=== PATIENT | female | born 1975 | race Caucasian/White ===

== ENCOUNTER 2020-06-28 21:56 | Inpatient (IN) | payer OTHER, SELFPAY ==
[2020-06-28 21:56] VITALS: BP 112/80; PULSE 89; RESP 18; TEMP 35.9; O2SAT 95; BMI 32.9
[2020-06-28 22:25] LABS: Bacteria 0 SEEN /hpf (None Seen); Mucous, Urine 0 SEEN /hpf (<or=2+); Red Blood Cells-Urine 0 SEEN /hpf (0-5); White Blood Cells 0 SEEN /hpf (0-5)
[2020-06-28 22:28] LABS: Color, Urine Straw (Yellow); Glucose, Dipstick Normal (Normal); Ketone-Dipstick Negative (Negative); Leukocyte Esterase-Dipstick Negative /ul (Negative); Nitrite-Dipstick Negative (Negative); Occult Blood-Urine Negative /ul (Negative); Protein-Dipstick Negative (Negative); Specific Gravity, Urine 1.005 (1.002-1.030); Urine Bilirubin Dipstick Negative (Negative); Urine Clarity Clear (Clear); Urine Urobilinogen Normal (Normal)
[2020-06-28 22:31] LABS: Absolute Lymphocyte Count 1.22 X10^3/uL (0.83-4.51); Absolute Neutrophil Count 13.2 X10^3/uL (2.0-7.7); Basophil# 0.03 X10^3/uL; Basophil% 0.2 % (0-1); Eosinophil# 0.02 X10^3/uL; Eosinophils% 0.1 % (0-5); Hematocrit 36.9 % (37-47); Hemoglobin 12.2 g/dL (12.0-15.0); Lymphocyte # 1.22 X10^3/ul (4.0); Mean Corp Hgb Conc 33.1 g/dL (32-36); Mean Corpuscular Volume 90.9 fL (81-99); Mean Platelet Vol. 9.3 fl (6.2-12.0); Monocyte# 0.78 X10^3/uL; Monocyte% 5.1 % (0-10); NRBC Flagged by Analyzer 0 % (0-5); Neutrophil % 86.3 % (47-70); Platelet Count 334 K/mm3 (150-450); RBC Distribution Width CV 13.6 % (11.6-14.6); RBC Distribution Width SD 45.7 fl (35.1-43.9); Red Blood Count 4.06 M/mm3 (4.2-5.4); White Blood Count 15.3 K/mm3 (4.4-11.0)
[2020-06-28 22:34] LABS: Squamous Epithelial Cells - UA 0-5 SEEN /hpf (5-10)
[2020-06-28 22:46] LABS: Anion Gap 4 (5-15); BUN 9 mg/dL (7-18); BUN/Creat Ratio 10.7 RATIO (10-20); Calcium,Total 9.3 mg/dL (8.5-10.1); Chloride 105 mmol/L (98-107); Creatinine, Serum 0.84 mg/dL (0.55-1.02); EST Glomerular Filtration Rate 77 mL/min (>60); Est Glom Filt Rate - Afr Amer 93 mL/min (>60); Estimated Creatinine Clearance 72.26 ml/min; Glucose 109 mg/dL (74-106); Potassium 3.7 mmol/L (3.5-5.1); Sodium Level 138 mmol/L (136-145)
[2020-06-28 22:47] LABS: Internal QC Validated? YES +Cl - CLEAR BKGD; Pregnancy, Serum, hCG Quali. NEGATIVE Negative
[2020-06-28 22:56] LABS: Lipase 132 U/L (73-393)
[2020-06-28 22:57] LABS: AST(SGOT) 16 U/L (15-37); Alanine Aminotransfer ALT/SGPT 31 U/L (13-56); Albumin, Serum 3.7 g/dL (3.2-5.0); Alkaline Phosphatase 74 U/L (45-117); Bilirubin, Direct 0.12 mg/dL (0.00-0.30); Globulin 3.9 g/dL (2.2-4.2); Protein, Total 7.6 g/dL (6.4-8.2)
--- NOTE | 2020-06-28 22:58 | CT_ITS ---
We are attempting to reach an attending provider to discuss findings. An addendum with communication details will be sent when the communication is complete. STUDY: CT ABDOMEN AND PELVIS WITH CONTRAST REASON FOR EXAM: Female, 44 years old. DIFFUSE ABDOMEN PAIN AND VOMITING SINCE 1 PM TODAY,ELEVATED WBC,PREG TEST WAS NEGATIVE RADIATION DOSAGE (If Supplied By Facility): CTDIvol = ( 16.57 ) mGy, DLP = ( 963.16 ) mGycm TECHNIQUE: Transaxial images were obtained from the dome of the diaphragm to the symphysis pubis without oral contrast. IV 100mL Isovue-300 was administered. Sagittal and coronal images were reconstructed. Individualized dose optimization techniques were used for this CT. COMPARISON: None. FINDINGS: The visualized lung bases are unremarkable. The visualized portions of the heart are within normal limits. Normal liver. Normal gallbladder and extrahepatic biliary system. Normal spleen. Normal pancreas. Normal bilateral adrenal glands. Normal right kidney. Normal left kidney. There are tiny subcentimeter bilateral renal cysts. Normal visualized stomach. Normal small intestine. Normal colon. There is a tubular, thick-walled appendix (>7mm), consistent with acute appendicitis. Appendix measures 1.4 cm across. There are several appendicoliths. There is mild periappendiceal fat stranding. Normal abdominal aorta. Normal inferior vena cava. Normal retroperitoneum. Normal urinary bladder. Normal visualized uterus. Normal abdominal wall. Normal osseous structures. CT/Abdomen/Pelvis W IV Cont ONLY IMPRESSION: Acute appendicitis without perforation or abscess. Electronically Signed: Diogenes Koch MD at 23:39 EST , Service support ,
--- NOTE | 2020-06-28 23:00 | ED.VIS.GEN ---
History of Present Illness Chief Complaint: Abd Pain Informant: Patient Narrative: Patient is a 44-year-old female with no known medical problems who presents to the emergency department for abdominal pain. This started around 1 AM today. She denies ever experiences before in the past. The majority the pain is in the lower quadrants bilaterally. She currently rates the pain as a 9 out of 10. She states she tried drinking charcoal water and zandra root but this did not help. She had one episode of vomiting. No change in bowel habits. She denies any urinary symptoms. No vaginal bleeding or discharge. No fevers or chills. She denies any chest pain or shortness of breath. The pain does not radiate to her back. No previous abdominal surgeries. Past Medical History - Allergies and Home Meds Allergies/Adverse Reactions: Allergies No Known Allergies Allergy (Verified 03/08/17 12:32) Primary Care Physician: Care Physician,No Primary [Primary Care Provider] - Prior records reviewed: Yes Past Medical History: None Surgical History: no surgical history Smoking Status: Never smoker Review of Systems All systems negative except as indicated General: Denies: Chills, Fever, Sweats Eyes: Denies: Visual changes - bilaterally, Diplopia ENT: Denies: Rhinorrhea, Sore throat Cardiovascular: Denies: Chest pain, Palpitations Respiratory: Denies: Dyspnea, Cough, Dyspnea on exertion Gastrointestinal: Reports: Abdominal pain, Nausea, Vomiting. Denies: Diarrhea, Melena, Hematochezia Genitourinary: Denies: Dysuria, Hematuria, Frequency Musculoskeletal: Denies: Back pain, Extremity Pain Skin: Denies: Rash, Wounds Neurological: Denies: Headache, Weakness, Numbness Physical Exam Vital Signs/Narrative: Vital Signs Temp Pulse Resp BP Pulse Ox 06/28/20 21:56 96.7 F L 89 18 112/80 95 Inital Vital Signs reviewed: Yes General: Well nourished, Well developed, No Acute Distress Head: Normocephalic, Atraumatic Eyes: Perrl, EOMI ENT: Moist mucous membranes, No rhinorrhea Neck: Supple, Nontender Cardiovascular: Regular rate, Regular rhythm, No murmurs Respiratory: No distress, CTA bilaterally, Chest nontender Abdomen: Soft, Nondistended, Normal bowel sounds, Tender - Diffuse but mostly in the right lower quadrant. No rebound or guarding.. Negative for: Psoas sign, Fitzpatrick's sign Back: Nontender, Normal Inspection Extremities: Nontender, No edema Skin: Normal color, No rash Neurological: Alert, Oriented x3, Cranial nerves II-XII grossly intact, Normal Strength, Normal Sensation Psychological: Normal affect, Normal Mood Diagnostic/Tx/Re-eval - Medical Decision Making Patient presents to the emergency department for abdominal pain and nausea/vomiting. Upon arrival to the emerge department vital signs within normal limits. She does not appear in acute distress. Will treat patient's pain with morphine and Zofran. Basic lab work obtained along with CT scan of the abdomen and pelvis. Patient's white blood cell count was elevated. No evidence of kidney injury. Liver enzymes within normal limits as well as lipase. No evidence of UTI. CT scan did show evidence of acute appendicitis. This is consistent with her abdominal exam. General surgery was consulted. Per hospital protocol coronavirus test was obtained. This did come back negative. She was started on Zosyn in the meantime. She otherwise has been stable throughout ED stay. Patient understands and is agreeable this plan. All questions answered. Will bring into the hospital for further evaluation and surgical management. ED Disposition - Plan for ED Patient: Disposition: Home or Assisted Living Diagnosis: Acute appendicitis Referrals: Care Physician,No Primary [Primary Care Provider] -
[2020-06-28] MEDS: Morphine 4 MG/ML Syringe IV (23:27)
[2020-06-28] MEDS: Ondansetron 4 MG/2 ML Vial IV (23:27)
[2020-06-29] VITALS (9 sets, daily range): BP systolic 85–104; BP diastolic 53–68; PULSE 67–105; RESP 14–18; TEMP 36.2–37.2; O2SAT 92–97; BMI 32.9; BMI 36.2; BMI 36.3
--- NOTE | 2020-06-29 02:42 | PCM.CONS.GEN ---
Problem List (1) Acute appendicitis Status: Acute Qualifiers: Acute appendicitis type: with localized peritonitis Appendicitis gangrene presence: unspecified whether gangrene present Appendicitis perforation presence: unspecified whether perforation present Appendicitis abscess presence: without abscess Qualified Code(s): K35.30 - Acute appendicitis with localized peritonitis, without perforation or gangrene Reason for Consult Date of Consultation: 06/29/20 History of Present Illness: Patient is a 44-year-old female with no known medical problems who presents to the emergency department for abdominal pain. This started around 1 AM today. She denies ever experiences before in the past. The majority the pain is in the lower quadrants bilaterally. She currently rates the pain as a 9 out of 10. She states she tried drinking charcoal water and zandra root but this did not help. She had one episode of vomiting. No change in bowel habits. She denies any urinary symptoms. No vaginal bleeding or discharge. No fevers or chills. She denies any chest pain or shortness of breath. The pain does not radiate to her back. No previous abdominal surgeries. CT scan was read as acute appendicitis with appendicoliths and mild periappendiceal fat stranding. Past Medical History Allergies No Known Allergies Allergy (Verified 03/08/17 12:32) Home Medications: Ambulatory Orders Medication Instructions Recorded NK 06/28/20 Surgical History: no surgical history Smoking Status: Never smoker - *Family History Maternal History Items: No pertinent history Review of Systems Constitutional: Reports: Chills Cardiovascular: Denies: Chest Pain, Chest Pressure, Chest Tightness, Palpitations Respiratory: Denies: Cough, Hemoptysis, Shortness of breath at rest, Shortness of breath upon exertion, Wheezing Gastrointestinal: Reports: Abdominal Pain Patient Problems: Active and Suspected Problems Acute appendicitis (Acute) - Physical Exam Vitals/I&O's: Vital Signs Temp Pulse Resp BP Pulse Ox 96.7 F L 89 18 112/80 95 06/28/20 21:56 06/28/20 21:56 06/28/20 21:56 06/28/20 21:56 06/28/20 21:56 Oxygen Delivery Method Room Air Weight: 192 lb 0.362 oz Body Mass Index (BMI) 32.9 Intake and Output for Last 24 Hours 06/27/20 06/28/20 06/29/20 23:59 23:59 23:59 Intake Total 50 / 50 Balance 50 / 50 General: Alert, Oriented x3 Lungs: Clear to auscultation Cardiovascular: Regular rate, Regular Rhythm, No murmurs Abdomen: Bowel Sounds Present, Soft, Non-Distended, Tender - Most of the tenderness is in the right lower quadrant. There is positive Rovsing sign. There is positive peritoneal irritation. Laboratory Results 06/28/20 22:07: Urine Color Straw, Urine Clarity Clear, Urine pH 7.0, Ur Specific [place] 1.005, Urine Protein Negative, Urine Glucose (UA) Normal, Urine Ketones Negative, Urine Occult Blood Negative, Urine Nitrite Negative, Urine Bilirubin Negative, Urine Urobilinogen Normal, Ur Leukocyte Esterase Negative, Urine RBC 0 SEEN, Urine WBC 0 SEEN, Ur Squamous Epith Cells 0-5 SEEN, Urine Bacteria 0 SEEN, Urine Mucus 0 SEEN 06/28/20 22:25: WBC 15.3 H, RBC 4.06 L, Hgb 12.2, Hct 36.9 L, MCV 90.9, MCH 30.0, MCHC 33.1, RDW Std Deviation 45.7 H, RDW Coeff of Scooby 13.6, Plt Count 334, MPV 9.3, Immature Gran % (Auto) 0.300, Neut % (Auto) 86.3 H, Lymph % (Auto) 8.0 L, [place] % (Auto) 5.1, Eos % (Auto) 0.1, Baso % (Auto) 0.2, Absolute Neuts (auto) 13.2 H, Absolute Lymphs (auto) 1.22, Nucleated RBC % 0 06/28/20 22:25: Sodium 138, Potassium 3.7, Chloride 105, Carbon Dioxide 29.0, Anion Gap 4 L, BUN 9, Creatinine 0.84, Estim Creat Clear Calc 72.26, Est GFR (MDRD) Af Amer 93, Est GFR (MDRD) Non-Af 77, BUN/Creatinine Ratio 10.7, Glucose 109 H, Calcium 9.3 06/28/20 22:25: Serum , Qual NEGATIVE 06/28/20 22:25: Total Bilirubin 0.40, Direct Bilirubin 0.12, AST 16, ALT 31, Alkaline Phosphatase 74, Total Protein 7.6, Albumin 3.7, Globulin 3.9 06/28/20 22:25: Lipase 132 06/29/20 00:15: COVID-19 (AB) Not Detected Assessment/Plan All Active Problems Acute appendicitis (Acute) Plan is to perform a laparoscopic appendectomy on the patient. Risk benefits to include bleeding infection possible delayed abscess possible need for drain placement possible need for further surgeries have all been discussed with the patient and the patient is willing to proceed. All questions asked were answered. Office Visits / Consults: [id number] IP Consult L4 - Modifier 57
[2020-06-29] MEDS: HYDROmorphone 0.5 MG/0.5 ML SYRINGE IV (03:28)
--- NOTE | 2020-06-29 03:45 | APP_PTH ---
PATIENT: GAVI THOMPSON LOC: MS3 U#:[id number] AGE/SX: 44/F ROOM: NM323 RE06/29/[address]: Dr. Dillon Good MD : 1975 BED: 1 DIS: 06/30/2020 SPEC #: [id number] RECD: 06/29/20 07:38 STATUS: RUPA REJose Francisco #: [id number] DELORIS: 06/29/20 03:[address]: Dillon Good DEPT: SURGICAL PATHOLOGY RECD BY: Linh Locke ENTERED: 06/29/20 10:18 SP TYPE: APPENDIX OTHR DR: No Primary Care Phys Tissues: A - Appendix, NOS B - MECKEL'S DIVERTICULUM Procedures: Surgery Specimen Level III HEADER OPERATION: Laparoscopic appendectomy PRE-OP DIAGNOSIS: Acute appendicitis TISSUE SUBMITTED: A - Appendix, B - Meckel's diverticulum MICROSCOPIC DIAGNOSIS A. Appendix, appendectomy: Acute appendicitis and periappendicitis. One benign periappendiceal lymph node. B. Meckel's diverticulum: Consistent with Meckel's diverticulum. See comment. LEATHA:samantha 06/30/20 COMMENT B. Diverticulum is lined by small intestinal mucosa. MICROSCOPIC DESCRIPTION Slides are reviewed. GROSS DESCRIPTION A - Received in fixative is one container labeled with the patient's name and designated appendix. The specimen consists of an appendix measuring 7 cm in length and 0.6 cm in average diameter. No gross perforations are evident. Serial sections reveal a patent lumen with fecal material. No mass lesion is identified. [place] Cane Planter sections are submitted in one cassette. B - Received in fixative is one container labeled with the patient's name and designated Meckel's diverticulum. The specimen consists of a saccular portion of glistening mucosa with attached fibrofatty tissue measuring 3 x 1.5 x 1 cm. The shirley are removed. The specimen is bisected and totally submitted in two cassettes. / AM:samantha 06/29/20 TC:2 CPT: 24253 x2
[2020-06-29] MEDS: Bupivacaine Mpf 0.5% 30 ML VIAL (03:52)
--- NOTE | 2020-06-29 05:42 | OP.PCM_ITS ---
Problem List (1) Acute appendicitis Status: Acute Qualifiers: Acute appendicitis type: with localized peritonitis Appendicitis gangrene presence: unspecified whether gangrene present Appendicitis perforation presence: unspecified whether perforation present Appendicitis abscess presence: without abscess Qualified Code(s): K35.30 - Acute appendicitis with localized peritonitis, without perforation or gangrene (2) Meckels diverticulum Status: Acute Report of Operation Date of Procedure: 06/29/20 Pre-Operative Diagnosis: Acute appendicitis Post-Operative Diagnosis: Same with Meckel's diverticulum Type of Anesthesia:: General Anesthesiologist: Naima Lewis Specimen's removed: 1. Appendix. 2. Meckel's diverticulum Fluids Replaced: < 25 cc Description of Procedure: Patient was brought into the operating room. Placed in the supine position. Under excellent general endotracheal ovation the abdomen was sterilely prepped a nd draped in the usual fashion. Local was injected at the umbilicus infraumbilically. Dissection was carried down to the fascia. The fascia was grasped with a Gerald. Varies needle was placed inside the abdomen. The abdomen was insufflated to 15 torr. A 10/12 trocar was placed without difficulty. Suprapubic #5 trocar was placed at left lower quadrant #5 trocar was placed. Both of these under direct visualization without injury to underlying structures. Patient was noted to have acute appendicitis I was able to grab the tip of the appendix I came down on the mesoappendix with the Enseal. I had good pneumostasis. I transected the base of the appendix with a 45 linear cutter. I placed a specimen a specimen bag delivered through the umbilical port without difficulty. I inspected the base of the appendix. W2 appendix I had good pneumostasis. I started to run the small bowel and to my amazement I found a very small Meckel's diverticulum. On the antimesenteric side there was a globule of fat with a small outpouching of tissue. I transected this with a 45 linear cutter I used electrocautery to touch and get good pneumostasis on my staple line. I inspected the small bowel there was no signs of any narrowing of the small bowel. I had made my staple line tangentially across the small bowel. I irrigated out the pelvis I had good in the stasis. I reinspected my staple li natalie good in the stasis was noted. Remove the trochars under direct visualization hemostasis was noted. Closed the fascia the umbilical port with a [id number] stitch of 0 Vicryl. Skin incisions were closed with subcuticular stitches of 4 Monocryl. Steri-Strips were applied. Sterile dressings were applied. The patient tolerated the procedure well. - Admit VTE Documentation VTE Present on Admission: No VTE Mechan Device Prophylaxis: SCD's VTE Pharm Prophylaxis ordered?: No Reason prophylaxis not ordered:: Treatment Not Indicated [id number]: [id number] Laparoscopy appendectomy - + [id number]
--- NOTE | 2020-06-29 06:19 | NURSING ---
Pt called her on my charge attendant phone because she was not aware of him being notified after surgery.
[2020-06-29] MEDS: 0.9% Normal Saline 1,000 ML 75 ML IV ×2 (06:43→19:39)
--- NOTE | 2020-06-29 11:45 | CASEMGMT ---
RN VISHNU Face to Face with patient for initial transition planning/care coordination assessment. RN CM introduced self and role at [facility]. Patient lying in bed, alert and oriented. Patient willing to participate in assessment and is able to answer all questions appropriately. Care providers, pharmacy, and demographics verified. Patient wishes to discharge home, denies need for home health at this time. Patient states she has no further needs or concerns at this time. CM to follow for discharge planning needs that may arise. PCP: [facility] [place] Specialists: none Preferred Pharmacy: [facility] [place] [facility] [place] [facility] [place]: [place] Living Will/HPOA: none LNOK: Living Arrangements: Patient lives with in a 2 story home with bed and bath on first floor. Patient states she is independent at home. Transportation: Driving service DME/HHC: Patient denies DME or need for HHC Disposition Plan: Patient to discharge home with family support and follow-up plans in place. Jessica RIVAS, RN, CM
[2020-06-30 02:18] VITALS: BP 91/41; PULSE 72; RESP 18; TEMP 36.7; O2SAT 93
[2020-06-30 07:39] LABS: Absolute Lymphocyte Count 1.87 X10^3/uL (0.83-4.51); Basophil# 0.02 X10^3/uL; Basophil% 0.2 % (0-1); Eosinophil# 0.01 X10^3/uL; Eosinophils% 0.1 % (0-5); Hematocrit 32.7 % (37-47); Hemoglobin 10.1 g/dL (12.0-15.0); Lymphocyte # 1.87 X10^3/ul (4.0); Lymphocyte % 17.8 % (19-41); Mean Corp Hgb Conc 30.9 g/dL (32-36); Mean Corpuscular Hgb 29.3 pg (27.0-32.0); Mean Corpuscular Volume 94.8 fL (81-99); Mean Platelet Vol. 9.4 fl (6.2-12.0); Monocyte# 0.54 X10^3/uL; Monocyte% 5.1 % (0-10); NRBC Flagged by Analyzer 0 % (0-5); Neutrophil # 8.03 X10^3/uL (2.7-7.7); Neutrophil % 76.5 % (47-70); Platelet Count 281 K/mm3 (150-450); Red Blood Count 3.45 M/mm3 (4.2-5.4); White Blood Count 10.5 K/mm3 (4.4-11.0)
[2020-06-30 07:49] VITALS: BP 95/64; PULSE 74; RESP 16; TEMP 36.7; O2SAT 95
[2020-06-30 08:04] LABS: Anion Gap 4 (5-15); BUN 7 mg/dL (7-18); BUN/Creat Ratio 8.8 RATIO (10-20); Calcium,Total 8.2 mg/dL (8.5-10.1); Chloride 110 mmol/L (98-107); Creatinine, Serum 0.79 mg/dL (0.55-1.02); EST Glomerular Filtration Rate 83 mL/min (>60); Est Glom Filt Rate - Afr Amer 100 mL/min (>60); Estimated Creatinine Clearance 67.15 ml/min; Glucose 88 mg/dL (74-106); Potassium 3.4 mmol/L (3.5-5.1); Sodium Level 141 mmol/L (136-145)
--- NOTE | 2020-06-30 09:14 | PN.SURG_ITS ---
Patient Problems: Active and Suspected Problems Acute appendicitis (Acute) Meckels diverticulum (Acute) Subjective: Patient's pain is significantly improved. She is passing flatus. Objective: Abdomen is soft dressings are dry - Physical Exam Vitals/I&O's: Vital Signs Temp Pulse Resp BP Pulse Ox 98.0 F 74 16 95/64 95 06/30/20 07:49 06/30/20 07:49 06/30/20 07:49 06/30/20 07:49 06/30/20 07:49 Oxygen Delivery Method Room Air Weight: 192 lb Body Mass Index (BMI) 36.2 Intake and Output for Last 24 Hours 06/28/20 06/29/20 06/30/20 23:59 23:59 23:59 Intake Total 1960 / 2960 2596.25 / 2596.25 Output Total 1600 / 2500 1800 / 1800 Balance 360 / 460 796.25 / 796.25 Laboratory Results 06/30/20 07:25: WBC 10.5, RBC 3.45 L, Hgb 10.1 L, Hct 32.7 L, MCV 94.8, MCH 29.3, MCHC 30.9 L D, RDW Std Deviation 49.0 H, RDW Coeff of Scooby 14.0, Plt Count 281, MPV 9.4, Immature Gran % (Auto) 0.300, Neut % (Auto) 76.5 H, Lymph % (Auto) 17.8 L, [place] % (Auto) 5.1, Eos % (Auto) 0.1, Baso % (Auto) 0.2, Absolute Neuts (auto) 8.0 H, Absolute Lymphs (auto) 1.87, Nucleated RBC % 0 06/30/20 07:25: Sodium 141, Potassium 3.4 L, Chloride 110 H, Carbon Dioxide 27.0 , Anion Gap 4 L, BUN 7, Creatinine 0.79, Estim Creat Clear Calc 67.15, Est GFR (MDRD) Af Amer 100, Est GFR (MDRD) Non-Af 83, BUN/Creatinine Ratio 8.8 L, Glucose 88, Calcium 8.2 L Current Medications Acetaminophen (Acetaminophen 325 Mg Tablet) 650 mg PO Q6H PRN PRN PRN Reason: Pain Score 1-10 Hydromorphone HCl (Hydromorphone 0.5 Mg/0.5 Ml Syringe) 0.5 - 1 mg IV Q2H PRN PRN PRN Reason: Pain Score 1-10 Piperacillin Sod/Tazobactam (Sod 3.375 gm/ Sodium Chloride) 50 mls @ 12.5 mls/hr IV Q8 MICAH Last Admin: 06/30/20 05:22 Dose: 12.5 mls/hr Documented by: Ondansetron HCl (Ondansetron 4 Mg/2 Ml Vial) 4 mg IV Q8H PRN PRN PRN Reason: Nausea Oxycodone HCl (Oxycodone 5 Mg Tablet) 5 - 10 mg PO Q4H PRN PRN PRN Reason: Pain Score 6-10 Sodium Chloride (0.9% Saline Lock 10 Ml Syringe) 10 - 40 ml IV UD PRN PRN Reason: SALINE FLUSH Medical Necessity - Tobacco Use Smoking Status: Never smoker Assessment/Plan All Active Problems Acute appendicitis (Acute) Meckels diverticulum (Acute) Believe that it is appropriate for her to be discharged today.
--- NOTE | 2020-06-30 09:15 | DCINST_ITS ---
Discharge Diet: Light diet - advance as tolerated - if you have questions about your diet instructions, please talk to you doctor. Discharge Activity: May Not Drive - for 3-5 days or while taking narcotic pain meds. May shower in (days): 1 Call your doctor if your incision/area has: Continuous Slow Oozing, Sudden Increased Bleeding, Increased Pain/ Swelling, Increased Redness, Foul Smelling Discharge Call your doctor if you observe: Fever of 101 or Higher Suture Line Care: Avoid Pulling/Pushing, Avoid Pinching/Bending Additional Dressing/Incision Instructions:: Keep dressing clean and dry. Change or remove dressing in 2 days. Leave steri strips for 1 week. May protect with a gauze bandaid. Medications to take at Discharge NK 06/28/20 Allergies/Adverse Reactions: Allergies No Known Allergies Allergy (Verified 03/08/17 12:32) Primary Care Physician: Care Physician,No Primary [Primary Care Provider] - Test Results: Test results from this visit will be discussed in further detail at your follow- up appointment, if applicable. Please Follow Up With: Dillon Good MD - [phone] When: Call to make a follow up appointment with your doctor in 1 week.
--- NOTE | 2020-06-30 11:09 | PHA.DC.MC ---
Pharmacy Service has performed discharge medication reconciliation and counseling for this patient. 1. OXYCODONE/ACETAMINOPHEN 5/325MG 1-2T PO Q4H PRN PAIN The patient's discharge medication list was reviewed for discrepancies and discrepancies were resolved. Home Medications Oxycodone HCl/Acetaminophen [Percocet 5/325] 1 - 2 tab PO Q4H PRN PRN 6 Days #30 tab 06/30/20 The patient was counseled on the following discharge medications and changes in medications for homegoing were reviewed. The Reason for Use, instructions for use, and potential side effects were reviewed for all new medications. The patient's questions regarding all of their medications were answered. The patient was able to verbally demonstrate an understanding of their discharge medications.
== END 2020-06-30 11:20 | disposition home or self-care (01) | DRG 343 ==
LOC: ED 06-29 02:23 → SDC 06-29 02:43 → MS3 06-29 02:45 → SDC 06-29 10:31 → MS3 06-29 10:31
PROVIDERS: Admitting Provider Surgery; Emergency Provider Emergency Medicine; Referring Provider Surgery; Visit Provider Surgery
PROC: 0DTJ4ZZ Resection of Appendix, Percutaneous Endoscopic Approach (ICD-10-PCS; CPT 44970; principal; 2020-06-29 03:45)
DX: K35.30 Acute appendicitis with localized peritonitis, without perforation or gangrene (principal); Q43.0 Meckel's diverticulum (displaced) (hypertrophic)
CPT/HCPCS: 74177; 80048; 80076; 81001; 83690; 84703; 85025; 87635; 88304; 99284; J7030; J7050; Q9967; A4216; C1760; J2405; U0002

== ENCOUNTER 2023-03-30 18:16 | Emergency (ER) | payer OTHER, SELFPAY ==
[2023-03-30 18:18] VITALS: BP 119/75; PULSE 73; RESP 18; TEMP 36.1; O2SAT 96; BMI 36.1
[2023-03-30 18:47] VITALS: O2SAT 98
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
[2023-03-30] MEDS: Diphth,Pertuss(Acell),Tet Vac 0.5 ML Vial IM (18:55)
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
[2023-03-30] MEDS: Lidocaine 1% (20 ml mdv) 20 ML Vial INFILT (19:41)
[2023-03-30 20:45] VITALS: PULSE 79; RESP 18; O2SAT 100
== END 2023-03-30 21:19 | disposition home or self-care (01) ==
PROVIDERS: Emergency Provider Emergency Medicine; Visit Provider Emergency Medicine
DX: M54.6 Pain in thoracic spine (principal); S01.81XA Laceration without foreign body of other part of head, initial encounter; S50.811A Abrasion of right forearm, initial encounter; Z23 Encounter for immunization; V19.3XXA Pedal cyclist (driver) (passenger) injured in unspecified nontraffic accident, initial encounter
CPT/HCPCS: 12013; 71046; 90471; 90715; 99283